=== PATIENT | male | born 1985 | race Caucasian/White ===

== ENCOUNTER 2020-05-14 13:12 | Emergency (ER) | payer MEDICAID ==
[~2020-05-14] VITALS: Ht 167.6 cm; Wt 93.4 kg
[~2020-05-14 13:12] MED LIST: VIC PO
[2020-05-14 13:46] VITALS: BP 167/106
--- NOTE | 2020-05-14 14:00 | NUR ---
C/O ETOH AND METH WITHDRAWAL. PT REPORTS USING METH EVERY DAY FOR THE LAST 3 MONTHS AND ETOH EVERYDAY FOR THE LAST YEAR, AND HAS NOT USED EITHER FOR 2 DAYS. PT STATES HE WANTS TO GET HIS FAMILY BACK AND WANTS TO QUIT USING DRUGS AND NEEDS HELP. PT STATES HE FEELS SHAKEY AND ANXIOUS, BUT HAS NOT HAD ANY N/V/D/FEVER, CHEST PAIN OR SOB. BED IN LOW POSITION, SIDE RAIL UP X1
--- NOTE | 2020-05-14 14:10 | NUR ---
ERMD AT BEDSIDE EVALUATING PT
[2020-05-14 15:25] VITALS: BP 154/99
--- NOTE | 2020-05-14 15:25 | NUR ---
Patient discharged with v/s stable. Written and verbal after care instructions given and explained. Patient alert, oriented and verbalized understanding of instructions. Ambulatory with steady gait. All questions addressed prior to discharge. ID band removed. Patient advised to follow up with PMD. Rx of LIBRIUM given. Patient educated on indication of medication including possible reaction and side effects. Opportunity to ask questions provided and answered.
== END 2020-05-14 15:25 | disposition home or self-care (01) ==
LOC: MED 13:12
DX: F19.10 Other psychoactive substance abuse, uncomplicated (principal); F12.90 Cannabis use, unspecified, uncomplicated; Z79.899 Other long term (current) drug therapy
CPT/HCPCS: 99283